=== PATIENT | male | born 1980 | race Caucasian/White ===

== ENCOUNTER 2020-10-08 10:25 | Emergency (ER) | payer SELFPAY ==
[2020-10-08 10:36] VITALS: BP 129/70
[2020-10-08] MEDS ORDERED: IBUPROFEN 600 MG TABLET PO ONE (10:58)
--- NOTE | 2020-10-08 10:59 | ER Document Report ---
ED Medical Screen (RME) - General Chief Complaint: Head Injury Stated Complaint: FALL/HEAD INJURY Time Seen by Provider: 10/08/20 10:52 Primary Care Provider: MILENA PULIDO PA [Primary Care Provider] - Follow up as needed Notes: Patient is a 40-year-old male presents emergency department with chief complaint of cervical neck pain and facial pain. Patient states that he was sleepwalking 5 to 6 days ago and he fell and hit his face and has pain in his neck. Patient reports that he has not been able to breathe out of his nose since the incident. Exam: Point tenderness noted to cervical spine. Tenderness noted to facial area. I have greeted and performed a rapid initial assessment of this patient. A comprehensive ED assessment and evaluation of the patient, analysis of test results and completion of medical decision making process will be conducted by an additional ED providers. TRAVEL OUTSIDE OF THE [place] IN LAST 30 DAYS: No - Related Data Allergies/Adverse Reactions: No Known Allergies Allergy (Unverified 10/08/20 10:52) Past Medical History Psychiatric Medical History: Reports: Hx Depression - Immunizations Hx Diphtheria, Pertussis, Tetanus Vaccination: Yes Physical Exam - Vital signs Vitals: Temp Pulse Resp BP Pulse Ox 98.0 F 83 18 129/70 H 98 10/08/20 10:33 10/08/20 10:33 10/08/20 10:33 10/08/20 10:33 10/08/20 10:33 Course - Vital Signs Vital signs: Temp Pulse Resp BP Pulse Ox 98.0 F 83 18 129/70 H 98 10/08/20 10:33 10/08/20 10:33 10/08/20 10:33 10/08/20 10:33 10/08/20 10:33 Doctor's Discharge - Discharge Referrals: MILENA PULIDO PA [Primary Care Provider] - Follow up as needed
--- NOTE | 2020-10-08 11:22 | RADIOLOGY REPORT (SQ) ---
EXAM DESCRIPTION: CT CERVICAL SPINE WITHOUT IMAGES COMPLETED DATE/TIME: 10/08/2020 11:09 am REASON FOR STUDY: fall 6 days ago; pain COMPARISON: None. TECHNIQUE: Axial images acquired through the cervical spine without intravenous contrast. Images re viewed with lung, soft tissue and bone windows. Reconstructed coronal and sagittal MPR images review ed. Images stored on PACS. All CT scanners at this facility use dose modulation, iterative reconstruction, and/or weight based d osing when appropriate to reduce radiation dose to as low as reasonably achievable (ALARA). [facility]: Dose Right [facility]: CareDose [facility]: Dose Right [facility]: Teradose 4D [facility]: Smart [employer] RADIATION DOSE: CT Rad equipment meets quality standard of care and radiation dose reduction techniq ues were employed. CTDIvol: 13.6 mGy. DLP: 306 mGy-cm. mGy. LIMITATIONS: None. FINDINGS: ALIGNMENT: Anatomic. MINERALIZATION: Normal. VERTEBRAL BODIES: No fractures or dislocation. DISCS: No significant disc disease. FACETS, LATERAL MASSES, POSTERIOR ELEMENTS: No fractures. No dislocation. No acute findings. HARDWARE: None in the spine. VISUALIZED RIBS: No fractures. LUNG APICES AND SOFT TISSUES: No significant or acute findings. OTHER: No other significant finding. IMPRESSION: NO ACUTE OR SIGNIFICANT FINDINGS IN THE CERVICAL SPINE. TECHNICAL DOCUMENTATION: JOB ID: [id number] [place]-72 Quality ID # [id number]: Final reports with documentation of one or more dose reduction techniques (e.g., Au tomated exposure control, adjustment of the mA and/or kV according to patient size, use of iterative reconstruction technique) 2010 [employer]- All Rights Reserved Reading location - IP/workstation name: [email or web address]
--- NOTE | 2020-10-08 11:25 | RADIOLOGY REPORT (SQ) ---
EXAM DESCRIPTION: CT FACIAL AREA WITHOUT IMAGES COMPLETED DATE/TIME: 10/08/2020 11:09 am REASON FOR STUDY: fall 6 days ago; pain COMPARISON: None. TECHNIQUE: Noncontrasted images through the facial bones and orbits windowed for bone and soft tissu e. Additional coronal and sagittal reconstructed images reviewed. All images stored on PACS. All CT scanners at this facility use dose modulation, iterative reconstruction, and/or weight based d osing when appropriate to reduce radiation dose to as low as reasonably achievable (ALARA). [facility]: Dose Right [facility]: CareDose [facility]: Dose Right [facility]: Teradose 4D [facility]: Smart [employer] RADIATION DOSE: CT Rad equipment meets quality standard of care and radiation dose reduction techniq ues were employed. CTDIvol: 30.4 mGy. DLP: 640 mGy-cm. mGy. LIMITATIONS: None. FINDINGS: FACIAL BONES: No fracture or bone lesion. ORBITS: Intact. No fracture. Symmetric intact globes and retroorbital soft tissues. PARANASAL SINUSES: Right maxillary sinus mucosal thickening. No nasal polyps. Maxillary sinus outlet s are patent. SOFT TISSUES: No mass or edema. INFERIOR BRAIN: Limited view. No acute findings. OTHER: No other significant finding. IMPRESSION: No fracture. TECHNICAL DOCUMENTATION: JOB ID: [id number] [place]-72 Quality ID # [id number]: Final reports with documentation of one or more dose reduction techniques (e.g., Au tomated exposure control, adjustment of the mA and/or kV according to patient size, use of iterative reconstruction technique) 2010 [employer]- All Rights Reserved Reading location - IP/workstation name: [email or web address]
[2020-10-08] MEDS ORDERED: LORAZEPAM 1 MG TABLET PO ONE (11:57)
--- NOTE | 2020-10-08 12:13 | ER Document Report ---
ED Head/Face/Scalp Injury - General Chief Complaint: Neck Problem Stated Complaint: FALL/HEAD INJURY Time Seen by Provider: 10/08/20 10:52 Primary Care Provider: MILENA PULIDO PA [NO LOCAL MD] - Follow up as needed Notes: HPI: 40-year-old male who supposedly few days ago was "sleepwalking" and fell hitting his face on a dresser. He woke up immediately with no vomiting. No weakness or numbness. He is not on blood thinning medications. He had some epistaxis from the left nostril initially with no recurrence since that time. He does have some posterior neck pain. No anterior posterior rib pain, cough, s hortness of breath. Patient does have a bridge to his upper teeth and states one of the implants was "knocked out". ROS: See HPI All other review of systems reviewed and otherwise negative Reviewed vital signs and nursing note as charted by RN. PHYSICAL EXAM: CONSTITUTIONAL: Alert and oriented and responds appropriately to questions. Well-appearing; well-nourished HEAD: Normocephalic; atraumatic EYES: Extraocular range of motion. Pupils are equal and reactive ENT: Normal nose; small abrasion to the bridge without any malformation. No septal hematoma. Midface is stable. Patient is missing his left incisor with no pulp or dentin present no obvious intraoral lacerations with dried blood NECK: Supple without meningismus; minimally tender to palpation along the midline cervical spine with no obvious appreciable step-offs CARD: Regular rate and rhythm; no murmurs; symmetric distal pulses RESP: Normal chest excursion without splinting or tachypnea; breath sounds clear and equal bilaterally; no tenderness to anterior posterior palpation of the ribs ABD/GI: Normal bowel sounds; non-distended; soft, non-tender BACK: The back appears normal and is non-tender to palpation of the midline spine EXT: Normal ROM in all joints; non-tender to palpation; no edema SKIN: No acute lesions noted NEURO: CN 2-12 intact; 5/5 bilateral upper and lower extremity strength with sensation intact to light touch PSYCH: The patient's mood and manner are appropriate. Grooming and personal hygiene are appropriate. TRAVEL OUTSIDE OF THE [place] IN LAST 30 DAYS: No - Related Data Allergies/Adverse Reactions: No Known Allergies Allergy (Unverified 10/08/20 10:52) Past Medical History - Social History Smoking Status: Current Every Day Smoker Chew tobacco use (# tins/day): No Frequency of alcohol use: None Drug Abuse: Marijuana Family History: Reviewed & Not Pertinent Psychiatric Medical History: Reports: Hx Depression - Immunizations Hx Diphtheria, Pertussis, Tetanus Vaccination: Yes Physical Exam - Vital signs Vitals: Temp Pulse Resp BP Pulse Ox 98.0 F 83 18 129/70 H 98 10/08/20 10:33 10/08/20 10:33 10/08/20 10:33 10/08/20 10:33 10/08/20 10:33 Course - Re-evaluation Re-evalutation: 10/08/20 12:08 Given the above history and physical examination, CT scan of the face and cervical spine was performed. No obvious acute fractures. Patient has no septal hematoma or focal neurological deficits. Patient had avulsed tooth, bridge of the anterior left incisor knocked out with no pulp or dentin present. Patient has no allergies. Patient is extraordinarily anxious and has not been on any anxiety medications. He states he "hates hospitals". I have explained to the patient that some cementing may be beneficial to help avoid infection. Patient adamantly refuses. I explained that this could cause a serious infection. He understands this. is at bedside and also understands this. I have offered sedation as well as anxiety reducing medications. Patient refuses. I will provide a course of antibiotics. Patient has a dentist he states he will call. - Vital Signs Vital signs: Temp Pulse Resp BP Pulse Ox 98.0 F 83 18 129/70 H 98 10/08/20 10:33 10/08/20 10:33 10/08/20 10:33 10/08/20 10:33 10/08/20 10:33 Discharge - Discharge Clinical Impression: Accidental fall Qualifiers: Encounter type: initial encounter Qualified Code(s): W19.XXXA - Unspecified fall, initial encounter Facial contusion Qualifiers: Encounter type: initial encounter Qualified Code(s): S00.83XA - Contusion of other part of head, initial encounter Cervical strain, acute Qualifiers: Encounter type: initial encounter Qualified Code(s): S16.1XXA - Strain of muscle, fascia and tendon at neck level, initial encounter Condition: Good Disposition: HOME, SELF-CARE Additional Instructions: Come back immediately for any increased pain, change in location or quality of pain, weakness or numbness, facial swelling, or any other acute problems. Please take the antibiotics as prescribed and please follow-up with a dentist expeditiously as we have discussed. Prescriptions: Lorazepam [Ativan 1 mg Tablet] 1 mg PO Q4 PRN #12 tab PRN Reason: Penicillin V Potassium [Penicillin Vk 500 mg Tablet] 500 mg PO BID #20 tablet Referrals: MILENA PULIDO PA [NO LOCAL MD] - Follow up as needed [facility] [Provider Group] - Follow up as needed
== END 2020-10-08 13:12 | disposition home or self-care (01) ==
LOC: ER 10:25
DX: S00.83XA Contusion of other part of head, initial encounter (principal); S16.1XXA Strain of muscle, fascia and tendon at neck level, initial encounter; S03.2XXA Dislocation of tooth, initial encounter; S00.31XA Abrasion of nose, initial encounter; R51.9 Headache, unspecified; M54.2 Cervicalgia; W19.XXXA Unspecified fall, initial encounter; Y93.89 Activity, other specified; W22.03XA Walked into furniture, initial encounter; F17.200 Nicotine dependence, unspecified, uncomplicated; F12.10 Cannabis abuse, uncomplicated; Z97.2 Presence of dental prosthetic device (complete) (partial)
CPT/HCPCS: 70486; 72125; 99285